=== PATIENT | male | born 1955 | race Caucasian/White ===

== ENCOUNTER 2019-11-12 12:23 | Outpatient (CLI) | payer OTHER, SELFPAY ==
--- NOTE | ~2019-11-12 | XR_ITS ---
XR shoulder RT min 2V 11/12/2019 12:51 Indication: Right shoulder pain Procedure: 4 views right shoulder Comparison: No prior studies for comparison. Findings: No acute fracture, subluxation or dislocation. No significant soft tissue abnormality. No r adiopaque foreign bodies. There is a focal nodular density in the right midlung. Anatomic alignment o f the right shoulder. Impression: 1: Focal nodular density right midlung. Recommend correlation with CT chest. 2: No significant bone or joint abnormality. Reviewed, dictated and finalized at location A. Impression: 1: Focal nodular density right midlung. Recommend correlation with CT chest. 2: No significant bone or joint abnormality.
== END 2019-11-12 12:24 | disposition home or self-care (01) ==
PROVIDERS: PCP Internal Medicine; Visit Provider Internal Medicine
DX: M25.519 Pain in unspecified shoulder (principal); R91.8 Other nonspecific abnormal finding of lung field
CPT/HCPCS: 73030